=== PATIENT | male | born 1995 | race Two or more races ===

== ENCOUNTER → 2024-12-02 | Outpatient (CLI) | payer MEDICAID, SELFPAY ==
--- NOTE | 2024-12-02 14:30 | XR_ITS ---
Examination: MRI right wrist, without contrast Date and time of exam: December 02, 2024 1519 hours INDICATIONS: Volleyball injury 8 months ago with persistent pain in the wrist joint clicking Technique: Multiple axial sagittal and coronal images of the right wrist have been obtained with the Siemens high-resolution 1.5 [employer]ia MRI scanner. Images obtained include T2-weighted fat-suppressed sagittal sections, TR 3500, TE 46, T2 weighted coronal fat suppressed images, TR 3050, TE 84, T2-weighted transverse fat suppressed images, TR 3260, TE 63, proton density transverse images, TR 4720 TE 46, and T1 weighted coronal images, TR 560, TE 13. 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
== END | disposition home or self-care (01) ==
PROVIDERS: PCP Nurse Practitioner Family; Referring Provider Nurse Practitioner Family; Visit Provider Nurse Practitioner Family
DX: S62.014A Nondisplaced fracture of distal pole of navicular [scaphoid] bone of right wrist, initial encounter for closed fracture (principal); Y93.68 Activity, volleyball (beach) (court)
CPT/HCPCS: 73221